=== PATIENT | female | born 1995 | race Caucasian/White ===

== ENCOUNTER 2017-03-08 14:22 | Inpatient (IN) ==
[2017-03-08] MEDS ORDERED: MAGNESIUM SULF RIDER 100 ML IV ONE ×2 (14:53→14:57)
[2017-03-08] MEDS ORDERED: BETAMETH SODIUM PHOS/ACETATE 30 MG/5 ML VIAL ONE (14:53)
[2017-03-08] MEDS ORDERED: MEPERIDINE 50 MG/1 ML VIAL IV PRN (14:53)
[2017-03-08] MEDS ORDERED: ONDANSETRON 4 MG/2 ML VIAL IV PRN (14:53)
[2017-03-08] MEDS ORDERED: MAGNESIUM SULF DRIP 40 GM/1,000 ML ML IV ONE (14:54)
[2017-03-08] MEDS ORDERED: BETAMETH SODIUM PHOS/ACETATE 30 MG/5 ML VIAL IM SCH (15:00)
[2017-03-08] MEDS: LACTATED RINGERS 1,000 ML IV SCH (15:00)
[2017-03-08 15:15] LABS: Basophils % 0.2 % (0.0-0.8); Eosinophils % 0.3 % (0.00-10.9); Hematocrit 33.3 VOL% (35.7-47.0); Hemoglobin 11.3 GM/DL (12.0-16.0); Immature Granulocytes % 1.1 %; Immature Granulocytes Absolute 0.13 #; Lymphocytes # 1.4 10*3/uL (1.4-4.0); Lymphocytes % 12.4 % (21.3-54.2); Mean Corpuscular HGB Conc 33.9 GM/DL (32-36); Mean Corpuscular Hemoglobin 29 PG (27-34); Mean Corpuscular Volume 84.1 FL (87-102); Mean Platelet Volume 11.7 FL (9.6-12.0); Monocytes % 8.9 % (1.7-12.7); Neutrophils # 8.8 10*3/uL (1.4-7.4); Neutrophils % 77.1 % (38.7-73.9); Platelet Count 203 T/CUMM (130-400); Red Blood Count 3.96 MC/CUMM (3.8-5.5); Red Cell Distribution Width 13.4 % (9.3-17.3); White Blood Count 11.4 T/CUMM (4-12)
[2017-03-08] MEDS: MAGNESIUM SULF DRIP 40 GM/1,000 ML ML IV SCH (15:41)
[2017-03-08 15:46] LABS: Albumin 2.2 G/DL (3.4-5.0); Bilirubin,Total 0.4 MG/DL (0.2-1.0); Calcium 8.1 MG/DL (8.5-10.1); Osmolality,Calculated 272.5 MOS/KG (273-304); Potassium 3.6 MMOL/L (3.5-5.1); Total Protein 6.3 G/DL (6.4-8.3)
[2017-03-08] MEDS ORDERED: TERBUTALINE 1 MG/1 ML VIAL SUBCUT PRN (16:39)
--- NOTE | 2017-03-08 16:55 | Ultrasound Report ---
History: labor Date: 03/08/2017 Study: Obstetrical ultrasound greater than 14 weeks Comparison exam: No previous There is a single intrauterine fetus in vertex presentation with a heart rate of 149 bpm. The placenta is anterior without previa. The DWIGHT measures a normal 8.8 cm. There is a three-vessel umbilical cord. The maternal cervix measures 2.4 centers length by translabial measurements and is closed. No masses of the maternal myometrium are identified. The maternal ovaries are not demonstrated. The four-chamber heart view, spine, kidneys, bladder, and GI tract appear normal as seen. The facial structures and anterior abdominal wall are not well evaluated because of positioning. The brain is not well demonstrated. BPD 82 mm or 33 weeks 1 days Head circumference 286 mm or 31 weeks 3 days Abdominal circumference 286 mm or 32 weeks 4 days Femur length 60 mm or 31 weeks 0 days The fetus measures in the 16.1 percentile based on EFW The cephalic index is minimally increased at 86.57. The other standard ratios are normal in range Impression: Single intrauterine fetus in vertex presentation with a menstrual age of 32 weeks 0 days +/- 16 days, AUSTYN May 03, 2017, and EFW 1890 g +/- 283 g. motion and cardiac activity are noted during real-time sonography PROCEDURE INTERPRETED AT [facility] DEPARTMENT OF RADIOLOGY Final Report Signed by: Dr. Isabella Heck
--- NOTE | 2017-03-08 17:55 | OB/GYN History & Physical ---
History of Present Illness Chief complaint: Pelvic pressure, contractions, questionable loss of mucous plug History of present illness: Ms. Jacobs is a 22 year old female 1 para 0 presenting with uterine contractions and pelvic pressure. She was admitted to labor and delivery and examined and found to be approximately 3 cm dilated. Contractions were every 2-3 minutes apart and in moderate intensity. She was placed on IV magnesium sulfate, and also received IVCelestone. The heart tones were documented and found to be 160s and 170s with good accelerations. After hydration and a bolus IV magnesium sulfate this patient's contractions spaced out. We will continue to observe and will attempt to wean the patient off the magnesium to Procardia if possible. labor and prematurity was discussed with this patient and her family at great length. 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 General appearance: no acute distress - Antepartum / Post Antepartum Exam Cervix - Dilatation: 3 cm Effacement: 60% effaced Rupture: Membranes intact - Head Head exam: Present: normal inspection - Eye Eye exam: Present: EOMI Pupils: Present: VIPUL - ENT ENT exam: Present: normal exam - Neck Neck exam: Present: normal inspection - Respiratory Respiratory exam: Present: clear to auscultation bilaterally - Breast Breasts: as per HPI Menstruation: as per HPI - Cardiovascular Cardiovascular exam: Present: regular rate and rhythm - GI/Abdominal GI/Abdominal exam: Present: normal bowel sounds - Extremities Exam Extremities exam: Present: normal inspection - Back Exam Back exam: Present: normal inspection - Neurological Exam Neurological exam: Present: alert, oriented X3 - Psychiatric Psychiatric exam: Present: normal affect - Skin Skin exam: Present: normal color Assessment and Plan (1) Prematurity of fetus Status: Acute Current Visit: Yes (2) labor Status: Acute Current Visit: Yes Results - Labs CBC & BMP: 03/08/17 15:11 03/08/17 15:10 Quality Measures - VTE Contraindication to Pharmacological VTE Prophylaxis: Clinical assessment deems Pt at low risk, no prophalaxis needed
[2017-03-09] MEDS: guaiFENesin 200 MG/10 ML UDCUP PO PRN ×3 (02:35→22:13)
[2017-03-09] MEDS: LACTATED RINGERS 1,000 ML IV SCH (05:45)
[2017-03-09] MEDS: MAGNESIUM SULF DRIP 40 GM/1,000 ML ML IV SCH (05:57)
[2017-03-09] MEDS ORDERED: hydrOXYzine HCL 25 MG/1 ML VIAL IM PRN (08:39)
[2017-03-09] MEDS ORDERED: FAMOTIDINE 20 MG/2 ML VIAL IV ONE (08:39)
[2017-03-09] MEDS ORDERED: CITRIC ACID/SODIUM CITRATE 30 ML UDCUP PO ONE (08:39)
[2017-03-09] MEDS ORDERED: diphenhydrAMINE 50 MG/1 ML VIAL IV PRN ×2 (08:39)
[2017-03-09] MEDS ORDERED: ePHEDrine 50 MG/ML AMP IV PRN (08:39)
[2017-03-09] MEDS ORDERED: fentaNYL 2 MCG/ROPIV 0.2% EPID 150 ML EPIDURAL SCH (08:39)
[2017-03-09] MEDS ORDERED: LACTATED RINGERS 500 ML IV ONE (08:39)
--- NOTE | 2017-03-09 08:53 | Event Note ---
Patient's mag level this morning was elevated and her mag IV was decreased to 2 g/h. The patient had not complained of any contractions throughout the night however, I checked her this morning to determine if she had any cervical changes. Upon examination the patient was noted to be 7 cm dilated with a bulging BOW. In light of these findings the magnesium will be discontinued and the patient will be allowed to continue and prepare for delivery of a . The risk and benefits have been thoroughly discussed with this patient and significant other, plan of care has been discussed with Dr. Mignon Hamilton and Dr. Brie Rousseau, and all parties are in agreement with plan of care. 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
[2017-03-09] MEDS ORDERED: AMPICILLIN INJ 2,000 MG in SODIUM CHLORIDE 0.9% 100 ML IV ONE (09:57)
[2017-03-09] MEDS ORDERED: OXYTOCIN/LR 20 UNIT/1,000 ML BAG IV ONE (11:47)
--- NOTE | 2017-03-09 13:53 | Event Note ---
HPI: Ms. Quijano is a 22-year-old female who presented to the labor department and labor. Attempts were made to arrest her progression of labor. However those attempts failed. Upon examination this morning the patient was 7 cm dilated. The risk and benefits were thoroughly discussed with the patient and significant other. Plan of care was discussed with Dr. Hamilton and all parties were in agreement with plan. Stage I: The patient was admitted, she eventually received an epidural for pain control. She received IV fluids and she was also on IV magnesium until a point where the magnesium was not arresting her labor progression; therefore the magnesium was discontinued and the patient was allowed to progress normally in labor. When she was completely dilated artificial rupture membranes was performed with clear fluid noted. Otherwise the patient had an uneventful course of labor. Stage II: The patient was complete and complained of pressure. She was instructed to push. She pushed for approximately 20 minutes after which time the 's head was delivered. The mouth and nose were suctioned on the perineum. The remainder the infant was delivered at 1240, a viable male was noted. Apgars were 7 at 1 minute and 8 at 5 minutes. weight was 4 pounds and 9 ounces. A cord pH was obtained and sent to the lab. Stage III: A spontaneous delivery of a Larkin placenta with a three-vessel cord noted. The placenta was further examined appeared to be grossly intact. The vagina cervix was inspected with no tears or lacerations noted. Estimated blood loss was approximately 150 cc. The placenta was sent to pathology for further evaluation due to labor.
[2017-03-09] MEDS ORDERED: AMPICILLIN INJ 1,000 MG in SODIUM CHLORIDE 0.9% 100 ML IV SCH (14:00)
[2017-03-09] MEDS ORDERED: ACETAMINOPHEN/CODEINE 300-30 MG TABLET PO PRN (14:02)
[2017-03-09] MEDS ORDERED: MEASLES/MUMPS/RUBELLA VACCINE 0.5 ML VIAL SUBCUT ONE (16:23)
[2017-03-09] MEDS ORDERED: LANOLIN 50% CREAM 0.3 OZ TUBE TOP PRN (16:23)
[2017-03-09] MEDS ORDERED: HYDROCORTISONE 2.5% RECTAL CREAM 30 GM TUBE TOP PRN (16:23)
[2017-03-09] MEDS ORDERED: IBUPROFEN 800 MG TABLET PO PRN (16:23)
[2017-03-09] MEDS ORDERED: oxyCODONE/ACETAMINOPHEN 5-325 MG TABLET PO PRN ×2 (16:23)
[2017-03-09] MEDS ORDERED: WITCH HAZEL PADS 100/JAR TOP PRN (16:23)
[2017-03-09] MEDS ORDERED: ACETAMINOPHEN 325 MG TABLET PO PRN (16:23)
[2017-03-09] MEDS ORDERED: DIPH/TET/ACEL PERT BOOSTER VACCINE 0.5 ML VIAL IM ONE (16:23)
[2017-03-09] MEDS ORDERED: BISACODYL 10 MG SUPP RECTAL PRN (16:23)
[2017-03-09] MEDS ORDERED: BENZOCAINE 20%/MENTHOL 0.5% SPRAY 56 GM CAN TOP PRN (16:23)
[2017-03-09] MEDS ORDERED: RHO(D) IMMUNE GLOBULIN 300 MCG SYRINGE IM ONE (16:23)
[2017-03-09] MEDS: DOCUSATE SODIUM 100 MG CAPSULE PO SCH (22:13)
[2017-03-10] MEDS: guaiFENesin 200 MG/10 ML UDCUP PO PRN ×2 (04:37→23:06)
[2017-03-10 06:37] LABS: Basophils % 0.2 % (0.0-0.8); Eosinophils % 0.2 % (0.00-10.9); Hematocrit 29.3 VOL% (35.7-47.0); Hemoglobin 9.8 GM/DL (12.0-16.0); Immature Granulocytes % 1.3 %; Immature Granulocytes Absolute 0.18 #; Lymphocytes # 1.2 10*3/uL (1.4-4.0); Lymphocytes % 8.6 % (21.3-54.2); Mean Corpuscular HGB Conc 33.4 GM/DL (32-36); Mean Corpuscular Hemoglobin 28 PG (27-34); Mean Corpuscular Volume 84.7 FL (87-102); Mean Platelet Volume 11.5 FL (9.6-12.0); Monocytes # 1.1 10*3/uL (0.11-0.8); Monocytes % 7.8 % (1.7-12.7); Neutrophils # 11.4 10*3/uL (1.4-7.4); Neutrophils % 81.9 % (38.7-73.9); Platelet Count 209 T/CUMM (130-400); Red Blood Count 3.46 MC/CUMM (3.8-5.5); Red Cell Distribution Width 13.5 % (9.3-17.3); White Blood Count 13.9 T/CUMM (4-12)
[2017-03-10] MEDS ORDERED: AZITHROMYCIN 250 MG TABLET PO ONE (09:00)
--- NOTE | 2017-03-10 09:00 | OB/GYN Progress Note ---
Assessment and Plan (1) (spontaneous vaginal delivery) Status: Acute Assessment and plan: Initiate routine orders. 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 Exam RECTIFYING OPERATOR - Constitutional Vitals: Vital Signs Temp Pulse Resp BP Pulse Ox 03/10/17 07:00 16 03/10/17 04:37 97.9 F 86 20 123/77 96 03/10/17 03:00 16 03/10/17 02:00 16 03/10/17 01:00 16 03/09/17 23:45 97.6 F 102 H 18 107/69 03/09/17 19:25 98.2 F 110 H 20 116/70 98 03/09/17 18:10 94 H 20 118/76 98 03/09/17 17:10 96 H 20 121/67 97 03/09/17 16:40 106 H 20 113/78 97 03/09/17 16:10 99.2 F 109 H 20 128/75 97 03/09/17 12:00 97.6 F 105 H 18 104/62 General appearance: normal weight, no acute distress - Antepartum / Post Antepartum Exam Breast: bilateral: normal Abdomen obstetrics: Present: bowel sounds normal Vagina: Present: normal moisture, discharge (Light lochia rubra) Uterus exam: Present: enlarged (Fundus firm and midline) Anus/Rectum: Present: normal perianal skin - Respiratory Respiratory exam: Present: rales - Cardiovascular Cardiovascular exam: Present: regular rate and rhythm - GI/Abdominal GI/Abdominal exam: Present: normal bowel sounds - Extremities Exam Extremities exam: Present: normal inspection - Neurological Exam Neurological exam: Present: alert, oriented X3 - Psychiatric Psychiatric exam: Present: normal affect, normal mood - Skin Skin exam: Present: normal color, warm Results - Labs CBC & BMP: 03/10/17 06:26 03/08/17 15:10
[2017-03-10] MEDS: DOCUSATE SODIUM 100 MG CAPSULE PO SCH ×2 (09:02→21:53)
[2017-03-10] MEDS ORDERED: methylPREDNISolone 4 MG TABLET PO SCH ×3 (09:30→14:00)
--- NOTE | 2017-03-10 09:48 | Anesthesia Post-Op ---
Anesthesia Post OP - Post Ansesthetic Evaluation Patient seen in post op: Yes Resp: within normal limits CV: within normal limits Mental: within normal limits Temp: within normal limits [id number]: within normal limits Nausea and Vomiting: within normal limits Pain: within normal limits
[2017-03-10] MEDS: FERROUS SULFATE 325 MG TABLET PO SCH ×2 (16:37→21:53)
[2017-03-10] MEDS: methylPREDNISolone 4 MG TABLET PO SCH ×3 (16:39→21:54)
[2017-03-10] MEDS ORDERED: RHO(D) IMMUNE GLOBULIN 300 MCG SYRINGE IM ONE (19:03)
[2017-03-11] MEDS: AZITHROMYCIN 250 MG TABLET PO SCH (08:35)
[2017-03-11] MEDS: methylPREDNISolone 4 MG TABLET PO SCH ×5 (08:38→23:11)
[2017-03-11] MEDS: DOCUSATE SODIUM 100 MG CAPSULE PO SCH ×2 (08:39→22:04)
[2017-03-11] MEDS: FERROUS SULFATE 325 MG TABLET PO SCH ×2 (08:39→22:04)
--- NOTE | 2017-03-11 09:26 | OB/GYN Progress Note ---
Assessment and Plan (1) (spontaneous vaginal delivery) Status: Acute Assessment and plan: Initiate routine orders. 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 - Constitutional Vitals: Vital Signs Temp Pulse Resp BP Pulse Ox 03/11/17 07:14 97.1 F L 65 20 112/71 98 03/11/17 07:00 20 03/11/17 06:00 20 03/11/17 05:00 18 03/11/17 04:00 97.2 F L 65 16 95/59 96 03/11/17 03:00 16 03/11/17 02:05 16 03/11/17 01:00 18 03/11/17 00:05 97.7 F 74 18 112/81 95 03/10/17 20:05 97.4 F L 92 H 20 123/80 97 03/10/17 18:14 20 03/10/17 18:00 20 03/10/17 16:00 20 03/10/17 15:51 98.2 F 92 H 20 110/72 98 03/10/17 15:49 20 03/10/17 14:18 20 03/10/17 14:00 18 03/10/17 13:00 18 03/10/17 12:00 18 03/10/17 11:21 97.4 F L 82 20 118/74 97 03/10/17 11:00 20 03/10/17 10:00 20 General appearance: no acute distress - Antepartum / Post Post Exam Breast: bilateral: normal Abdomen obstetrics: Present: bowel sounds normal Vagina: Present: normal moisture Uterus exam: Present: enlarged (Fundus firm midline) Anus/Rectum: Present: normal perianal skin - Respiratory Respiratory exam: Present: clear to auscultation bilaterally - Cardiovascular Cardiovascular exam: Present: regular rate and rhythm - GI/Abdominal GI/Abdominal exam: Present: normal bowel sounds - Extremities Exam Extremities exam: Present: normal inspection - Neurological Exam Neurological exam: Present: alert, oriented X3 - Psychiatric Psychiatric exam: Present: normal affect, normal mood - Skin Skin exam: Present: normal color, warm Results - Labs CBC & BMP: 03/10/17 06:26 03/08/17 15:10
[2017-03-11] MEDS: guaiFENesin 200 MG/10 ML UDCUP PO PRN (23:09)
[2017-03-12] MEDS: DOCUSATE SODIUM 100 MG CAPSULE PO SCH (08:33)
[2017-03-12] MEDS: AZITHROMYCIN 250 MG TABLET PO SCH (08:33)
[2017-03-12] MEDS: FERROUS SULFATE 325 MG TABLET PO SCH (08:33)
[2017-03-12] MEDS: methylPREDNISolone 4 MG TABLET PO SCH ×3 (08:36→14:15)
[2017-03-12 11:28] VITALS: BP 109/75
--- NOTE | 2017-03-12 13:24 | Discharge Summary ---
Hospital Course - Hospital Course Hospital Course: Ms Jacobs presented to the hospital in active labor. She subsequently delivered a viable without difficulty. She has followed a normal course and she is doing well. She is voiding without difficulty. Her bleeding is minimal with no odor. Her vital signs and lab values are stable. She denies any significant complaints. She will be discharged to home with prescriptions for pain and a follow up appointment in our office. Diagnosis - Discharge Diagnosis (1) (spontaneous vaginal delivery) Status: Acute (2) labor Status: Acute Specialty Discharge - Follow Up or Referrals Follow up with: Mignon Hamilton MD [Physician] - 04/22/17 10:00 am Discharge Plan - Discharge Data Disposition: Disch To Home/Self Care Condition at Discharge: Stable Discharge Diet: advance to your usual diet, regular diet Activity: resume usual activities as tolerated Hygiene: no restrictions Weight Bearing at Discharge: weight bear as tolerated Driving: no restrictions Contact your physician if you experience:: fever over 101, pain uncontrolled by pain medications - Discharge Medications New Acetamin/Codeine 300-30 Tab [Tylenol/Codeine #3] 2 tablet PO Q4H PRN #30 tablet PRN Reason: Pain Mild (1-3) Ferrous Sulfate Tab [Feosol Original Tab] 325 mg PO BID #60 tablet Ibuprofen Tab [Motrin Tab] 800 mg PO Q6H PRN #30 tablet PRN Reason: Pain Moderate (4-7) No Action Pnv No.95/Ferrous Fum/Folic AC [ Tablet] 1 each PO DAILY - Follow Up or Referral Follow Up: Mignon Hamilton MD [Physician] - 04/22/17 10:00 am - Forms/Instructions Instructions: Depression (GEN), Perineal Care (DC), Vaginal Delivery (DC), Bleeding (DC) Exam - Constitutional Vitals: Period Temp Pulse Resp BP Sys/[place] Pulse Ox Last 24 Hr 97 F-97.8 F 62-100 16-20 108-122/65-79 96-98 General appearance: no acute distress - Head Head exam: Present: normal inspection - Neck Neck exam: Present: normal inspection - Respiratory Respiratory exam: Present: clear to auscultation bilaterally - Cardiovascular Cardiovascular exam: Present: regular rate and rhythm - GI/Abdominal GI/Abdominal exam: Present: normal bowel sounds, soft - Extremities Exam Extremities exam: Present: normal inspection - Neurological Exam Neurological exam: Present: alert, oriented X3 - Psychiatric Psychiatric exam: Present: normal affect, normal mood - Skin Skin exam: Present: normal color, warm DS: Provider Date of admission: 03/08/17 14:23 Primary care physician: . No PCP Attending physician on admission: Mignon Hamilton MD Consults: 03/08/17 14:53 Consult to Anesthesiology [CONS] Routine Consulting Provider: Reason for Anesthesiology: Epidural Consult Comment: Epidural for pain managment 03/09/17 16:23 Consult to Registered Nurse First Assistant [CONS] Routine Consult Registered Nurse First Assistant: Breast Feeding Discharging clinician: Adrianna Ceron CNM Expected date of discharge: 03/12/17
== END 2017-03-12 14:20 | disposition home or self-care (01) | DRG 775 ==
LOC: N.LDOUT 14:22 → N.LD 14:23 → N.OB 03-09 15:51
PROVIDERS: ADMIT Obstetrics & Gynecology; ATTEND Obstetrics & Gynecology

== ENCOUNTER 2019-12-14 18:24 | Inpatient (IN) ==
[2019-12-14] MEDS ORDERED: BUTORPHANOL 2 MG/ML VIAL IV PRN (18:47)
[2019-12-14] MEDS ORDERED: FAMOTIDINE 20 MG/2 ML VIAL IV ONE (18:47)
[2019-12-14] MEDS ORDERED: MEPERIDINE 50 MG/1 ML VIAL IV PRN (18:47)
[2019-12-14] MEDS ORDERED: ONDANSETRON 4 MG/2 ML VIAL IV PRN (18:47)
[2019-12-14] MEDS ORDERED: NALOXONE 0.4 MG/ML VIAL IV PRN (18:47)
[2019-12-14] MEDS ORDERED: CITRIC ACID/SODIUM CITRATE 30 ML UDCUP PO ONE (18:47)
[2019-12-14] MEDS ORDERED: ePHEDrine 50 MG/ML AMP ONE (18:58)
[2019-12-14] MEDS ORDERED: LACTATED RINGERS 1,000 ML IV SCH (19:00)
[2019-12-14] MEDS ORDERED: TRANEXAMIC ACID 1,000 MG/10 ML VIAL ONE (19:00)
[2019-12-14] MEDS ORDERED: OXYTOCIN/LR 20 UNIT/1,000 ML BAG IV ONE (19:00)
[2019-12-14] MEDS ORDERED: miSOPROStoL 200 MCG TABLET ONE (19:00)
[2019-12-14] MEDS ORDERED: METHYLERGONOVINE 0.2 MG/1 ML AMP ONE (19:00)
[2019-12-14] MEDS ORDERED: CARBOPROST TROMETHAMINE 250 MCG/ML AMP IM ONE (19:00)
[2019-12-14] MEDS ORDERED: BUTORPHANOL 1 MG/ML VIAL IV ONE (19:00)
[2019-12-14] MEDS ORDERED: fentaNYL 2 MCG/ROPIV 0.2% EPID 100 ML EPIDURAL SCH (19:00)
[2019-12-14 19:01] LABS: Basophils # 0.1 10*3/uL (0.0-0.2); Basophils % 0.3 % (0.0-0.8); Eosinophils % 0.1 % (0.00-10.9); Hematocrit 33.6 VOL% (35.7-47.0); Hemoglobin 10.5 GM/DL (12.0-16.0); Immature Granulocytes Absolute 0.18 #; Lymphocytes # 1.8 10*3/uL (1.4-4.0); Lymphocytes % 10.3 % (21.3-54.2); Mean Corpuscular HGB Conc 31.3 GM/DL (32-36); Mean Corpuscular Volume 81.6 FL (87-102); Mean Platelet Volume 12.3 FL (9.6-12.0); Monocytes % 6.5 % (1.7-12.7); Neutrophils % 81.8 % (38.7-73.9); Platelet Count 202 T/CUMM (130-400); Red Blood Count 4.12 MC/CUMM (3.8-5.5); Red Cell Distribution Width 14.1 % (9.3-17.3); White Blood Count 17.6 T/CUMM (4-12)
[2019-12-14] MEDS ORDERED: SODIUM CHLORIDE 0.9% 0 ML IV ONE (19:01)
[2019-12-14] MEDS ORDERED: LIDOCAINE 1% 50 ML VIAL ONE (19:04)
[2019-12-14] MEDS ORDERED: BUTORPHANOL 1 MG/ML VIAL ONE (19:05)
[2019-12-14 19:20] LABS: Albumin 2.7 G/DL (3.4-5.0); Bilirubin,Total 0.4 MG/DL (0.2-1.0); Calcium 9.1 MG/DL (8.5-10.1); Osmolality,Calculated 268.1 MOS/KG (273-304); Total Protein 7.5 G/DL (6.4-8.3)
[2019-12-14] MEDS ORDERED: OXYTOCIN/LR 20 UNIT/1,000 ML BAG IV SCH (20:30)
[2019-12-15] MEDS ORDERED: MEASLES/MUMPS/RUBELLA VACCINE 0.5 ML VIAL SUBCUT ONE (00:50)
[2019-12-15] MEDS ORDERED: DIPH/TET/ACEL PERT BOOSTER VACCINE 0.5 ML VIAL IM ONE (00:50)
[2019-12-15] MEDS ORDERED: BISACODYL 10 MG SUPP RECTAL PRN (00:50)
[2019-12-15] MEDS ORDERED: IBUPROFEN 800 MG TABLET PO PRN (00:50)
[2019-12-15] MEDS ORDERED: OXYTOCIN/LR 20 UNIT/1,000 ML BAG IV ONE (00:50)
[2019-12-15] MEDS ORDERED: BENZOCAINE 20%/MENTHOL 0.5% SPRAY 56 GM CAN TOP PRN (00:50)
[2019-12-15] MEDS ORDERED: HYDROCORTISONE 2.5% RECTAL CREAM 30 GM TUBE TOP PRN (00:50)
[2019-12-15] MEDS ORDERED: RHO(D) IMMUNE GLOBULIN 300 MCG SYRINGE IM ONE ×2 (00:50→11:00)
[2019-12-15] MEDS ORDERED: LANOLIN 50% CREAM 0.3 OZ TUBE TOP PRN (00:50)
[2019-12-15] MEDS ORDERED: ACETAMINOPHEN 325 MG TABLET PO PRN (00:50)
[2019-12-15] MEDS ORDERED: WITCH HAZEL PADS 100/JAR TOP PRN (00:50)
[2019-12-15] MEDS ORDERED: oxyCODONE/ACETAMINOPHEN 5-325 MG TABLET PO PRN ×2 (00:50)
[2019-12-15 07:20] LABS: Basophils # 0.1 10*3/uL (0.0-0.2); Basophils % 0.4 % (0.0-0.8); Eosinophils # 0.1 10*3/uL (0.0-0.87); Eosinophils % 0.5 % (0.00-10.9); Hematocrit 30.6 VOL% (35.7-47.0); Hemoglobin 9.4 GM/DL (12.0-16.0); Immature Granulocytes Absolute 0.15 #; Lymphocytes # 1.9 10*3/uL (1.4-4.0); Lymphocytes % 12.2 % (21.3-54.2); Mean Corpuscular HGB Conc 30.7 GM/DL (32-36); Mean Corpuscular Volume 82.5 FL (87-102); Mean Platelet Volume 12.5 FL (9.6-12.0); Monocytes % 8.8 % (1.7-12.7); Neutrophils % 77.1 % (38.7-73.9); Platelet Count 175 T/CUMM (130-400); Red Blood Count 3.71 MC/CUMM (3.8-5.5); Red Cell Distribution Width 14.1 % (9.3-17.3); White Blood Count 15.2 T/CUMM (4-12)
[2019-12-15] MEDS ORDERED: DOCUSATE SODIUM 100 MG CAPSULE PO SCH (09:00)
[2019-12-15] MEDS ORDERED: FERROUS SULFATE 325 MG TABLET PO SCH (09:00)
[2019-12-15 11:44] VITALS: BP 97/63
== END 2019-12-15 21:37 | disposition home or self-care (01) | DRG 807 ==
LOC: N.LDOUT 18:24 → N.LD 18:26 → N.OB 12-15 00:35
PROVIDERS: ADMIT Obstetrics & Gynecology; ATTEND Obstetrics & Gynecology